=== PATIENT | female | born 1930 | race Caucasian/White ===

== ENCOUNTER 2016-12-04 10:45 | Inpatient (IN) | payer MEDICARE, OTHER ==
[~2016-12-04] VITALS: Ht 167.6 cm; Wt 81.6 kg
[2016-12-04 10:45] VITALS: BP_SYST 122
--- NOTE | 2016-12-04 10:45 | NUR ---
Arrived via [facility] ambulance with compliant of SOB worse since yesterday when she was diagnosed with an ukn resp disorder. She failed to fill her prescription. Placed in room 2 . Placed on cardiac tech, blood pressure machine and pulse oximeter. To gown for exam. Side rails up. Report given to Charmaine OWUSU.
--- NOTE | 2016-12-04 10:52 | NUR ---
ER Dr. Sarah at bedside examining patient.
[2016-12-04] MEDS ORDERED: IPRATROPIUM BROM 0.5 MG/2.5 ML VIAL.NEB (ATROVENT) INH ONE (11:00)
[2016-12-04] MEDS ORDERED: LEVOFLOXACIN 500 MG/D5W 100 ML IV ONE (11:00)
[2016-12-04] MEDS ORDERED: ALBUTEROL SULFATE 0.083% 2.5 MG/3 ML VIAL.NEB INH PRN ×2 (11:00→15:45)
--- NOTE | 2016-12-04 11:13 | NUR ---
BLOOD DRAWN BY BEAM CARRIER HAULER PUSHER.
[2016-12-04 11:32] LABS: BASOPHILS # (AUTO) 0.1 K/uL (0.0-0.2); BASOPHILS % (AUTO) 0.4 % (0.0-2.0); EOSINOPHILS # (AUTO) 0.2 K/uL (0.0-0.4); EOSINOPHILS % (AUTO) 1.6 % (0.0-4.0); HEMATOCRIT 37.6 % (36-48); HEMOGLOBIN 11.8 g/dL (12.0-16.0); LYMPHOCYTES % (AUTO) 16.3 % (20.5-51.5); MEAN CORPUSCULAR HEMOGLOBIN 26 pg (27-31); MEAN CORPUSCULAR HGB CONC 31 % (32-36); MEAN CORPUSCULAR VOLUME 84 fL (79.0-98.0); MONOCYTES # (AUTO) 1.1 K/uL (0.0-1.0); MONOCYTES % (AUTO) 8.8 % (1.7-9.3); NEUTROPHILS # (AUTO) 9.1 K/uL (1.8-7.7); NEUTROPHILS % (AUTO) 72.9 % (40.0-70.0); PLATELET COUNT (AUTO) 279 K/uL (130-430); RED BLOOD CELL COUNT(AUTO) 4.49 MIL/uL (4.2-6.2); RED CELL DISTRIBUTION WIDTH 15.3 % (9.0-15.0); WHITE BLOOD COUNT (AUTO) 12.5 K/uL (4.8-10.8)
[2016-12-04 11:39] LABS: ANION GAP 7 (5-15); CALCIUM 8.9 mg/dL (8.4-11.0); CHLORIDE 107 mmol/L (98-107); CREATININE 0.76 mg/dL (0.55-1.30); GLUCOSE 158 mg/dL (70-99); POTASSIUM 3.4 mmol/L (3.5-5.1); SODIUM SERUM 145 mmol/L (136-145); UREA NITROGEN, BLOOD 15 mg/dL (8-21)
[2016-12-04] MEDS ORDERED: POTA20TA83 PO (11:41)
[2016-12-04] MEDS ORDERED: LIP40 PO (11:41)
[2016-12-04] MEDS ORDERED: CARB100T13 PO (11:41)
[2016-12-04] MEDS ORDERED: ALEN10TA6 PO (11:41)
[2016-12-04] MEDS ORDERED: ACET-73 PO (11:41)
[2016-12-04] MEDS ORDERED: PRO40 PO (11:41)
[2016-12-04] MEDS ORDERED: FURO-149 PO (11:41)
[2016-12-04] MEDS ORDERED: VITD2000 PO (11:41)
[2016-12-04] MEDS ORDERED: ATEN50TA PO (11:41)
[2016-12-04] MEDS ORDERED: RIVA15TA PO (11:41)
[2016-12-04] MEDS ORDERED: NIFE60TA7 PO (11:41)
[2016-12-04 11:42] LABS: INR 1.2 (0.8-1.2); PROTHROMBIN TIME 12.8 SECS (9.5-12.5)
--- NOTE | 2016-12-04 11:45 | NUR ---
# 14 FR In and Out catheter with use of sterile technique. Immediate return of 30 ml urine noted. Urine sample collected and sent to lab. Pt tolerated procedure well. Patient unable to toilet self.
[2016-12-04 11:50] LABS: ALANINE AMINOTRANSFERASE 21 U/L (12-78); ALBUMIN 2.9 g/dL (3.4-4.8); ASPARTATE AMINOTRANSFERASE 17 U/L (10-37); TOTAL BILIRUBIN 0.4 mg/dL (0.0-1.0); TOTAL PROTEIN, SERUM 7.2 g/dL (6.4-8.3)
[2016-12-04 11:55] LABS: BILIRUBIN,URINE NEGATIVE (NEGATIVE); CLARITY/URINE SL HAZY (CLEAR); COLOR,URINE YELLOW (YELLOW); GLUCOSE,URINE NEGATIVE (NEGATIVE); KETONES,URINE NEGATIVE (NEGATIVE); LEUKOCYTE ESTERASE ,URINE TRACE (NEGATIVE); NITRITE, URINE POSITIVE (NEGATIVE); PH,URINE 5.5 (5.0-8.0); PROTEIN URINE TRACE (NEGATIVE); UROBILINOGEN,URINE 0.2 (0.2-1.0)
[2016-12-04 11:56] LABS: BLOOD, URINE TRACE (NEGATIVE)
[2016-12-04 11:59] LABS: BACTERIA,URINE MANY /HPF (None Seen); RBC,URINE 0-3 /HPF (0-3)
[2016-12-04 12:00] LABS: MUCUS,URINE None Seen /LPF (None Seen)
[2016-12-04] MEDS ORDERED: LevALBUTEROL HCL 1.25 MG/0.5 ML *CONC.* VIAL.NEB (XOPENEX CONC.) INH ONE ×2 (12:00→12:07)
[2016-12-04] MEDS ORDERED: cefTRIAXone 1 GM IVPB PREMIX 50 ML IV ONE (12:15)
[2016-12-04] MEDS ORDERED: methylPREDNISolone SOD SUCC/PF 62.5 MG/ML VIAL IVP ONE (12:15)
--- NOTE | 2016-12-04 12:41 | NUR ---
ADMISSION NOTE Received patient from ER via iliar[facility]mel[facility], received report from CHANNEL DEVELOPMENT MANAGER. Patient admitted with diagnosis of PNEUMONIA. Patient oriented to hospital routine, call light, toileting and safety-patient verbalized understanding.
[2016-12-04 12:43] VITALS: BP_SYST 139
--- NOTE | 2016-12-04 12:46 | NUR ---
Patient will be admitted to care of Dr Hong . Admitted to Tele unit. Will go to room 135. Belongings list completed. Summary report printed. Report will be given at bedside.
--- NOTE | 2016-12-04 13:30 | NUR ---
admission notes rec patient awake alert with hob elevated. eating lunch being fed by her daughter. ivl on the r hand intact. no infiltration noted. resp unlabored but with wheezing noted. bed in low position and side rails up and locked. call light within reached and instructed to call nurse when needing assistance at bedside. assessment rendered.
--- NOTE | 2016-12-04 15:00 | NUR ---
rounds resting comfortably. bed in low position and side rails up and locked.
[2016-12-04] MEDS ORDERED: ACETAMINOPHEN 500 MG TABLET PO PRN (15:30)
[2016-12-04 15:44] VITALS: BP_SYST 96
--- NOTE | 2016-12-04 15:44 | NUR ---
consult for dr. winston called spoke to aguila dialed [phone]
[2016-12-04] MEDS: methylPREDNISolone SOD SUCC/PF 62.5 MG/ML VIAL IVP SCH ×2 (15:45→22:01)
[2016-12-04] MEDS ORDERED: IPRATROPIUM BROM 0.5 MG/2.5 ML VIAL.NEB (ATROVENT) INH PRN (15:45)
[2016-12-04] MEDS ORDERED: ATENOLOL 50 MG TABLET (TENORMIN) PO ONE (16:45)
--- NOTE | 2016-12-04 17:00 | NUR ---
rounds seen by dr gunn and with orders. sleeping at intervals. no sob noted.
[2016-12-04] MEDS: AZITHROMYCIN 500 MG in NS 250 ML IV SCH (18:01)
--- NOTE | 2016-12-04 18:52 | NUR ---
closing notes pt with periods of confusion . bed alarm was turned on. pt still wheezing . no sob noted. hob slightly elevated. stable, needs attended.
[2016-12-04] MEDS: IPRATROPIUM BROM 0.5 MG/2.5 ML VIAL.NEB (ATROVENT) INH SCH ×2 (19:43→23:20)
[2016-12-04] MEDS: ALBUTEROL SULFATE 0.083% 2.5 MG/3 ML VIAL.NEB INH SCH ×2 (19:43→23:20)
[2016-12-04 20:15] VITALS: BP_SYST 123
--- NOTE | 2016-12-04 20:15 | NUR ---
Initial note A/O x 2, confused at times. No SOB, no chest pain, denied pain. Skin warm to touch, IV at R FA, patent. Wheezing lung sounds and crackles at lower lobes. Active bowel sounds. +2 radial and pedal pulses. +1 edema BLE. L hand/arm contracted. Seizure precaution applied. Call light within reach, bed at lowest, bed alarm on, will continue to monitor patient.
[2016-12-04] MEDS: POTASSIUM CHLORIDE 20 MEQ TAB.PRT.SR PO SCH (20:43)
[2016-12-04] MEDS: ATORVASTATIN 20 MG TABLET PO SCH (20:43)
[2016-12-04] MEDS: ATENOLOL 50 MG TABLET (TENORMIN) PO SCH (20:49)
--- NOTE | 2016-12-04 22:00 | NUR ---
Rounds A/O x 2, confused at times. No SOB, no chest pain, denied pain, had some dry cough, some wheezing note. L hand/arm contracted. Seizure precaution applied. Call light within reach, bed at lowest, bed alarm on, will continue to monitor patient.
[2016-12-05 00:02] VITALS: BP_SYST 116
--- NOTE | 2016-12-05 00:10 | NUR ---
Rounds Sleeping in bed. No SOB, no chest pain, denied pain, some wheezing note. Seizure precaution applied. Call light within reach, bed at lowest, bed alarm on, will continue to monitor patient.
--- NOTE | 2016-12-05 02:35 | NUR ---
Rounds Sleeping in bed. No SOB, no chest pain, no grimacing. Seizure precaution applied. Call light within reach, bed at lowest, bed alarm on, will continue to monitor patient.
[2016-12-05] MEDS: ALBUTEROL SULFATE 0.083% 2.5 MG/3 ML VIAL.NEB INH SCH ×6 (03:00→23:00)
[2016-12-05] MEDS: IPRATROPIUM BROM 0.5 MG/2.5 ML VIAL.NEB (ATROVENT) INH SCH ×6 (03:00→23:00)
[2016-12-05 04:20] VITALS: BP_SYST 124
[2016-12-05] MEDS: methylPREDNISolone SOD SUCC/PF 62.5 MG/ML VIAL IVP SCH ×3 (05:13→21:07)
--- NOTE | 2016-12-05 06:00 | NUR ---
Rounds Awake in bed. No SOB, no chest pain, denied pain. Seizure precaution applied. Call light within reach, bed at lowest, bed alarm on, will continue to monitor patient.
[2016-12-05 06:25] LABS: ANION GAP 6 (5-15); BASOPHILS % (AUTO) 0.1 % (0.0-2.0); CALCIUM 8.8 mg/dL (8.4-11.0); CHLORIDE 111 mmol/L (98-107); CREATININE 0.71 mg/dL (0.55-1.30); EOSINOPHILS % (AUTO) 0.1 % (0.0-4.0); GLUCOSE 169 mg/dL (70-99); HEMOGLOBIN 10.9 g/dL (12.0-16.0); LYMPHOCYTES # (AUTO) 1.2 K/uL (1.0-5.5); LYMPHOCYTES % (AUTO) 14.4 % (20.5-51.5); MEAN CORPUSCULAR HEMOGLOBIN 27 pg (27-31); MEAN CORPUSCULAR HGB CONC 32 % (32-36); MEAN CORPUSCULAR VOLUME 85 fL (79.0-98.0); MONOCYTES # (AUTO) 0.5 K/uL (0.0-1.0); NEUTROPHILS # (AUTO) 6.8 K/uL (1.8-7.7); NEUTROPHILS % (AUTO) 79.4 % (40.0-70.0); PLATELET COUNT (AUTO) 227 K/uL (130-430); POTASSIUM 4.3 mmol/L (3.5-5.1); RED BLOOD CELL COUNT(AUTO) 3.99 MIL/uL (4.2-6.2); RED CELL DISTRIBUTION WIDTH 15.6 % (9.0-15.0); SODIUM SERUM 145 mmol/L (136-145); UREA NITROGEN, BLOOD 16 mg/dL (8-21); WHITE BLOOD COUNT (AUTO) 8.5 K/uL (4.8-10.8)
--- NOTE | 2016-12-05 07:44 | NUR ---
Closing note Awake in bed, receiving breathing now. No SOB, no chest pain, denied pain. Seizure precaution applied. Call light within reach, bed at lowest, bed alarm on,report given to incoming nurse.
[2016-12-05 08:00] VITALS: BP_SYST 160
--- NOTE | 2016-12-05 08:00 | NUR ---
Opening notes, Seen patient in bed, aaox3 denies pain, pt is INUPIAT. no sob but pt is wheezing all throughout lungs, breathing treatment was given by RT. bed in low position, bed alarm on, side rails padded. call light in reach. will continue to monitor.
[2016-12-05] MEDS: POTASSIUM CHLORIDE 20 MEQ TAB.PRT.SR PO SCH ×2 (09:06→21:07)
[2016-12-05] MEDS: PANTOPRAZOLE SODIUM 40 MG TAB PO SCH (09:06)
[2016-12-05] MEDS: RIVAROXABAN 15 MG TABLET PO SCH (09:06)
[2016-12-05] MEDS: FUROSEMIDE 40 MG TABLET PO SCH ×2 (09:07→14:47)
[2016-12-05] MEDS: NIFEDIPINE 60 MG TABLET.SA (PROCARDIA XL 60 MG) PO SCH (09:07)
[2016-12-05] MEDS: ATENOLOL 50 MG TABLET (TENORMIN) PO SCH ×2 (09:08→21:08)
[2016-12-05] MEDS: cefTRIAXone 1 GM IVPB PREMIX 50 ML IV SCH (09:22)
--- NOTE | 2016-12-05 09:27 | NUR ---
Nutrition Update Jason Scale 15 noted. Pt admitted for COPD, pulmonary. Diet: 2 gm Na BMI: 29.1 kg/m2 RD to follow per nutrition care standards. Addendum: 12/05/16 at [address] CORRECTION: Jason Scale 12 noted.
--- NOTE | 2016-12-05 10:00 | NUR ---
Rounding notes, Pt in bed, resting comfortably, no c/o pain, all meds offered and taken. bed alarm on , safety precaution in place. will cont to monitor.
[2016-12-05 11:36] VITALS: BP_SYST 138
--- NOTE | 2016-12-05 12:00 | NUR ---
Rounding Notes; Pt in bed, eating lunch, no sob, no distress, call light in reach, bed in low position. safety precaution in place. will cont to monitor.
--- NOTE | 2016-12-05 15:30 | NUR ---
rounding notes, patient in bed, no sob, no distress. all pm meds given. pt appears confused. stated that she " wants to get out of bed because she will give dinner to her son". reoriented pt and told her that she is in the hospital and she can not get out of bed this time. instructed not to get out of bed to prevent falling and cause more injury to herself. pt said "ok". will cont to monitor.
[2016-12-05 15:33] VITALS: BP_SYST 141
[2016-12-05] MEDS: AZITHROMYCIN 500 MG in NS 250 ML IV SCH (15:36)
--- NOTE | 2016-12-05 18:00 | NUR ---
rounding notes pt in bed, confused, stated that she is baking zucchini bread and wants to give everybody a piece, reoriented patient that she is in the hospital. safety precaution in place. bed alarm on. call light in reach. in structed not to get out of bed to prevent fall. will cont to monitor.
--- NOTE | 2016-12-05 19:30 | NUR ---
CLOSING NOTES, PATIENT ENDORSED TO NIGHT RN. PT REMAINED ALERT AND ORIENTED 2X, WITH PERIODS OF CONFUSION, REORIENTATION GIVEN. WHEEZES AUDIBLE.NO UNTOWARD INCIDENT THIS SHIFT, PT KEPT SAFE.
--- NOTE | 2016-12-05 19:45 | NUR ---
PM SHIFT ASSESSMENT RECEIVED PATIENT IN BED, AOX2 WITH PERIODS OF CONFUSION. REORIENTED TO TIME AND PLACE. VITAL SIGNS STABLE. ON ROOM AIR, NO SOB NOTED. IV LINE TO RFA INTACT AND PATENT, TKO. PATIENT ORIENTED TO CALL LIGHT FOR NURSE ASSISTANCE, CALL LIGHT WITHIN REACH, SEIZURE PADS IN PLACE, PATIENT REPOSITIONED FOR COMFORT. SAFETY MEASURES IN PLACE, BED ALARM ON, WILL MONITOR.
[2016-12-05 20:00] VITALS: BP_SYST 129
[2016-12-05] MEDS: BUDESONIDE 0.5 MG/2 ML AMPUL.NEB INH SCH (20:16)
[2016-12-05] MEDS: ATORVASTATIN 20 MG TABLET PO SCH (21:07)
[2016-12-05] MEDS: guaiFENesin ER 600 MG TAB PO SCH (21:07)
--- NOTE | 2016-12-05 21:34 | NUR ---
RN ROUNDS PATIENT AWAKE, NO SOB NOTED, DUE MEDICATIONS ADMINISTERED, ASPIRATION PRECAUTIONS MAINTAINED, PATIENT TURNED AND REPOSITIONED WITH PILLOW SUPPORT, REORIENTED TO USE CALL LIGHT FOR NURSE ASSISTANCE, CALL LIGHT WITHIN REACH, BED ALARM ON, WILL MONITOR.
[2016-12-06 00:21] VITALS: BP_SYST 121
--- NOTE | 2016-12-06 00:34 | NUR ---
RN ROUNDS PATIENT ASLEEP, RESPIRATIONS EVEN AND UNLABORED, VITALS STABLE. PATIENT TURNED AND REPOSITIONED WITH PILLOW SUPPORT, SAFETY MEASURES IN PLACE, BED ALARM ON, WILL CONTINUE TO MONITOR.
--- NOTE | 2016-12-06 02:50 | NUR ---
RN ROUNDS PATIENT CONTINUES TO SLEEP, RESPIRATIONS EVEN AND UNLABORED, REMAINS ON ROOM AIR, TURNED AND REPOSITIONED WITH PILLOW SUPPORT, BILATERAL HEELS ELEVATED WITH PILLOW SUPPORT. SAFETY MEASURES IN PLACE, BED ALARM ON, WILL CONTINUE TO MONITOR.
[2016-12-06] MEDS: IPRATROPIUM BROM 0.5 MG/2.5 ML VIAL.NEB (ATROVENT) INH SCH ×4 (03:00→20:01)
[2016-12-06] MEDS: ALBUTEROL SULFATE 0.083% 2.5 MG/3 ML VIAL.NEB INH SCH ×4 (03:00→20:01)
--- NOTE | 2016-12-06 04:06 | NUR ---
RN ROUNDS PATIENT CONTINUES TO SLEEP, RESPIRATIONS EVEN AND UNLABORED, VITAL SIGNS STABLE, TURNED AND REPOSITIONED WITH PILLOW SUPPORT, BILATERAL HEELS ELEVATED WITH PILLOW SUPPORT. SAFETY MEASURES IN PLACE, WILL CONTINUE TO MONITOR.
[2016-12-06 04:41] VITALS: BP_SYST 116
[2016-12-06] MEDS: methylPREDNISolone SOD SUCC/PF 62.5 MG/ML VIAL IVP SCH ×2 (05:13→14:39)
--- NOTE | 2016-12-06 05:22 | NUR ---
HYGIENE PATIENT AWAKE, NO SOB NOTED,PATIENT HAD A BOWEL MOVEMENT, INCONTINENCE CARE PROVIDED, REPOSITIONED WITH PILLOW SUPPORT.
--- NOTE | 2016-12-06 06:18 | NUR ---
RN ROUNDS PATIENT ASLEEP, RESPIRATIONS EVEN AND UNLABORED, NO SOB NOTED. DUE MEDICATIONS ADMINISTERED. IV LINE INTACT AND PATENT. TURNED AND REPOSITIONED WITH PILLOW SUPPORT, PATIENT NEEDS ATTENDED TO, SAFETY MEASURES MAINTAINED, WILL CONTINUE TO MONITOR UNTIL REPORT GIVEN TO AM NURSE.
[2016-12-06 08:00] VITALS: BP_SYST 132
[2016-12-06] MEDS: FUROSEMIDE 40 MG TABLET PO SCH ×2 (08:00→14:46)
--- NOTE | 2016-12-06 08:00 | NUR ---
initial notes rec patient awake alert with periods of confusion but very jolly patient. ivl on the r forearm intact. no infiltration noted. bilateral wheezing noted. resp easy and unlabored. with l side weakness noted. call light within reached and calls for assistance.
[2016-12-06] MEDS: POTASSIUM CHLORIDE 20 MEQ TAB.PRT.SR PO SCH ×2 (09:29→20:50)
[2016-12-06] MEDS: guaiFENesin ER 600 MG TAB PO SCH ×2 (09:29→20:49)
[2016-12-06] MEDS: NIFEDIPINE 60 MG TABLET.SA (PROCARDIA XL 60 MG) PO SCH (09:29)
[2016-12-06] MEDS: PANTOPRAZOLE SODIUM 40 MG TAB PO SCH (09:29)
[2016-12-06] MEDS: RIVAROXABAN 15 MG TABLET PO SCH (09:30)
[2016-12-06] MEDS: ATENOLOL 50 MG TABLET (TENORMIN) PO SCH ×2 (09:31→20:50)
[2016-12-06] MEDS: cefTRIAXone 1 GM IVPB PREMIX 50 ML IV SCH (09:31)
--- NOTE | 2016-12-06 10:00 | NUR ---
rounds due meds given as ordered. seen by dr gunn and with orders. no acute distress noted.
[2016-12-06] MEDS: BUDESONIDE 0.5 MG/2 ML AMPUL.NEB INH SCH ×2 (11:41→20:01)
--- NOTE | 2016-12-06 12:00 | NUR ---
rounds daughter came to visit patient. no acute distress. assisted with feeding the patient.
[2016-12-06 12:39] VITALS: BP_SYST 126
--- NOTE | 2016-12-06 14:00 | NUR ---
rounds sleeps at intervals. no acute distress noted.
[2016-12-06] MEDS: AZITHROMYCIN 500 MG in NS 250 ML IV SCH (15:33)
--- NOTE | 2016-12-06 16:00 | NUR ---
rounds resting comfortably. no sob noted. bed alarm on. with periods of confusion and wants someone in the room with her to talk to.
[2016-12-06 16:17] VITALS: BP_SYST 132
--- NOTE | 2016-12-06 18:28 | NUR ---
closing notes with hob elevated and eating dinner. no sob noted. bed in low position and side rails up and locked. stable and needs attended.
--- NOTE | 2016-12-06 19:20 | NUR ---
CHANGE OF SHIFT: pt. alert, awake but disoriented at times. pt. contracted on left arm, both lower extremities swollen. IV on rt. hand infusing TKO.O2 2l/nc, noted slight short of breath on exertion.HOB elevated. still eating her dinner.call light within reach.
[2016-12-06 19:50] VITALS: BP_SYST 143
--- NOTE | 2016-12-06 20:30 | NUR ---
NOTES; RT at bedside giving pt. her breathing treatment but constantly talking. schedule meds to be given.
[2016-12-06] MEDS: ATORVASTATIN 20 MG TABLET PO SCH (20:49)
--- NOTE | 2016-12-06 21:30 | NUR ---
NOTES: pt. incontinent, riccardo care done with the help of QUINTON Wiggins. pt repositioned. needs attended. denies any pain at this time.
[2016-12-07] VITALS (8 sets, daily range): BP systolic 132–149
--- NOTE | 2016-12-07 00:30 | NUR ---
ROUNDS: pt. checked and sleeping at this time, in no acute distress. for further observation.
[2016-12-07] MEDS: methylPREDNISolone SOD SUCC/PF 62.5 MG/ML VIAL IVP SCH ×2 (01:20→09:34)
--- NOTE | 2016-12-07 03:30 | NUR ---
NOTES: pt. still sleeping quietly. condition unchanged. continue to monitor.
--- NOTE | 2016-12-07 04:55 | NUR ---
NOTES: pt. remains sleeping.
--- NOTE | 2016-12-07 06:00 | NUR ---
NOTES: pt. repositioned and am care and riccardo care done, pt. incontinent of urine, Z mable cram applied on reddened skin on coccyx area.
--- NOTE | 2016-12-07 06:45 | NUR ---
CLOSING NOTES: pt. back to sleep, IVF patent. condition unchanged. HOB elevated for easier breathing. noted slight wheezing on exertion, schedule for breathing treatment. for further care and assistance.
--- NOTE | 2016-12-07 07:30 | NUR ---
endorsed pt. to incoming shift with nurse Lea.pt. awake and helped to sat up table for breakfast.HOB elevated.
[2016-12-07] MEDS: IPRATROPIUM BROM 0.5 MG/2.5 ML VIAL.NEB (ATROVENT) INH SCH (07:36)
[2016-12-07] MEDS: ALBUTEROL SULFATE 0.083% 2.5 MG/3 ML VIAL.NEB INH SCH (07:37)
--- NOTE | 2016-12-07 08:00 | NUR ---
OPENING NOTES PT PRESENTED WITH SOB AND IS BEING TREATED FOR COPD AND PNUEMONIA. PT SPEAKS SAMI AND IS ALERT AND ORIENTED X 2 IN THAT SHE COULD NOT REMEMBER WHERE WAS OR WHY SHE WAS IN THE HOSPITAL. PT HAS A HISTORY OF DEMENTIA AND CAN BECOME CONFUSED AND FORGETFUL. PT HAS A LIGHT, NON-PRODUCTIVE COUGH AND HER LUNG SOUNDS ARE CLEAR BILATERALLY. PT STATED SHE IS COMFORTABLE AND WITHOUT PAIN.
--- NOTE | 2016-12-07 09:17 | NUR ---
dr kelsey at bedside
[2016-12-07] MEDS: cefTRIAXone 1 GM IVPB PREMIX 50 ML IV SCH (09:34)
[2016-12-07] MEDS: PANTOPRAZOLE SODIUM 40 MG TAB PO SCH (09:35)
[2016-12-07] MEDS: RIVAROXABAN 15 MG TABLET PO SCH (09:35)
[2016-12-07] MEDS: guaiFENesin ER 600 MG TAB PO SCH ×2 (09:35→20:58)
[2016-12-07] MEDS: NIFEDIPINE 60 MG TABLET.SA (PROCARDIA XL 60 MG) PO SCH (09:35)
[2016-12-07] MEDS: FUROSEMIDE 40 MG TABLET PO SCH ×2 (09:36→12:43)
[2016-12-07] MEDS: ATENOLOL 50 MG TABLET (TENORMIN) PO SCH ×2 (09:36→20:59)
[2016-12-07] MEDS: POTASSIUM CHLORIDE 20 MEQ TAB.PRT.SR PO SCH ×2 (09:36→20:58)
--- NOTE | 2016-12-07 10:00 | NUR ---
ROUNDS PT IS RESTING IN BED AND STATES SHE IS NOT IN PAIN. HER BREATHING IS UNLABORED AND SHE IS CLEAN, DRY, AND APPEARS COMFORTABLE
--- NOTE | 2016-12-07 12:00 | NUR ---
rounds pt resting in bed and appears to be sleeping
--- NOTE | 2016-12-07 14:00 | NUR ---
ROUNDS PT RESTING IN BED AND SEEMS MORE CONFUSED THAN EARLIER TODAY. IT TOOK A FEW MINUTES TO ORIENT HER TO THE FACT i AM HER NURSE AND THAT SHE IS AT [facility]. I WILL CONTINUE TO MONITOR
--- NOTE | 2016-12-07 15:14 | NUR ---
PHYSICAL THERAPY CO-SIGN The Physical Therapy Progress Notes documented by Technical Business Analyst have been reviewed. I CONCUR W/SYSTEMS TESTER NOTE; CONT PT W/FOCUS ON SITTING BALANCE/TOLERANCE, BED MOBILITY Reviewed/Co-Signed by: Liliam Eason PT Documentation Done by: BRAN MCKINLEY SYSTEMS TESTER Addendum: 12/07/16 at 1515 by Liliam Eason PT Amended: Links added.
[2016-12-07] MEDS ORDERED: DOXY-4 PO (16:02)
[2016-12-07] MEDS ORDERED: METH4TAB3 PO (16:02)
[2016-12-07] MEDS ORDERED: ROBDM PO (16:03)
--- NOTE | 2016-12-07 16:05 | NUR ---
CALLED [facility] RE: TRANSFER TO THIS SNF. SPOKE WITH SHARON THE APPOINTMENT SETTER AND I WAS INFORMED THAT THEY ARE AWAITING AUTHORIZATION FROM THE INSURANCE. BED OF THE PT IS HELD. APPOINTMENT SETTER SHARON WILL CALL ME BACK
--- NOTE | 2016-12-07 16:07 | NUR ---
ATTENDING MD TECHNICAL WRITER DR EDMONDS, TECHNICAL WRITER FOR THE DR RODRIGUEZ WAS CALLED RE; CLARIFICATION OF ORDER-- DC TO SNF ([facility]) WITH THE APPROVAL OF DR PAULA THE [facility]. SPOKE TO YOSELIN
--- NOTE | 2016-12-07 16:14 | NUR ---
SPOKE TO MARY PALMER OF HCP RE: AUTHORIZED TRANSFER TO [facility] AND HAVING [facility] TO TRANSFER AT 1999.
--- NOTE | 2016-12-07 16:19 | NUR ---
ROOM # AT [facility] IS [id number]
--- NOTE | 2016-12-07 16:37 | NUR ---
HCP/PA: Jhonatan Jennings made her aware of discharge to [facility].
--- NOTE | 2016-12-07 17:00 | NUR ---
ROUNDS PT RESTING IN BED BUT APPEARS RESTLESS. I SAT DOWN AND SPOKE TO HER FOR A FEW MINUTES UNTIL SHE BECAME CALM. AGAIN, IT WAS DIFFICULT TO ORIENT HER TO REALITY.
--- NOTE | 2016-12-07 19:00 | NUR ---
ROUNDS PT IS PREPARED FOR TRANSFER TO [facility]. SHE IS SCHEDULED TO BE PICKED UP BY EMT AT 1999. FAMILY UPDATED OF TRANSFER.
--- NOTE | 2016-12-07 19:30 | NUR ---
INITIAL NOTE PT. RECEIVED IN BED, AAOX1. NO S/S OF SOB OR DISTRESS. PT DENIES PAIN AT THIS TIME. NO FACIAL GRIMACING NOTED. VSS. FAMILY IS AT THE BEDSIDE. AWARE THAT PT. IS GOING TO BE RETURNING BACK TO SNF THIS EVENING. AWAITING TRANSPORTATION ARRIVAL. FAMILY STATES THEY WOULD LIKE THE PT. TO RECEIVE ALL PM SCHEDULED MEDICATIONS. WILL ADMINISTER PRIOR TO PT. DEPARTURE. SAFETY AND FALL PRECAUTIONS ARE IN PLACE. CALL LIGHT IN REACH.
--- NOTE | 2016-12-07 20:15 | NUR ---
PT TRANSFERRED Report given to Jaylyn at [facility]. Transfer packet with Transfer Orders and Medication Reconciliation form given to EMT with report. Exit care provided. [facility] ID band removed. All belongings sent with patient. Patient left floor via gurney escorted by EMT in no distress, family present upon transfer.
[2016-12-07] MEDS: ATORVASTATIN 20 MG TABLET PO SCH (20:58)
[2016-12-07] MEDS ORDERED: PREDNISONE 20 MG TABLET PO SCH (21:00)
[2016-12-09] MEDS ORDERED: ALENDRONATE SODIUM 10 MG TABLET (FOSAMAX) PO SCH (06:00)
== END 2016-12-07 21:05 | DRG 190 ==
LOC: SED 10:46 → STU 12:09 → SMU 12-06 17:44
PROVIDERS: ADMIT Internal Medicine Hospice and Palliative Medicine; ATTEND Internal Medicine Hospice and Palliative Medicine
DX: J44.1 Chronic obstructive pulmonary disease with (acute) exacerbation (principal); J18.9 Pneumonia, unspecified organism; I10 Essential (primary) hypertension; E78.5 Hyperlipidemia, unspecified; I48.91 Unspecified atrial fibrillation; M81.0 Age-related osteoporosis without current pathological fracture; J44.0 Chronic obstructive pulmonary disease with (acute) lower respiratory infection; K21.9 Gastro-esophageal reflux disease without esophagitis; G40.909 Epilepsy, unspecified, not intractable, without status epilepticus; F03.90 Unspecified dementia, unspecified severity, without behavioral disturbance, psychotic disturbance, mood disturbance, and anxiety; Z79.899 Other long term (current) drug therapy; Z87.891 Personal history of nicotine dependence; Z86.73 Personal history of transient ischemic attack (TIA), and cerebral infarction without residual deficits
CPT/HCPCS: 36415; 71010; 80048; 80053; 80156-TC; 81000-TC; 83605; 83880; 84484; 85025; 85610-TC; 87040-TC; 87086; 93005; 94640; 94760; 96365; 96367; 96375; 97110-GP; 97530-GP; 99285; J0456; J0696; J1956; J2930; J7050; J7512